=== PATIENT | male | born 1975 | race Caucasian/White ===

== ENCOUNTER 2020-07-15 19:30 | Emergency (ER) | payer OTHER, SELFPAY ==
[2020-07-15 19:30] VITALS: BP 144/88; PULSE 90; RESP 18; TEMP 36.7; O2SAT 99; BMI 36.9
--- NOTE | 2020-07-15 19:40 | CT_ITS ---
INDICATION: LLQ pain EXAMINATION: CT Abdomen And Pelvis W/ Contrast Injection TECHNIQUE: Helically acquired images were obtained of the abdomen and pelvis after IV contrast. A radiation dose optimization technique was used for this scan. IV Contrast dosage and agent: 100 cc [id number] Oral contrast: Yes. COMPARISON: None. FINDINGS: Visualized lung bases: Bibasilar atelectasis. Liver: Unremarkable Gallbladder: Surgically absent. Spleen: Unremarkable Pancreas: Unremarkable Adrenal Glands: Unremarkable Kidneys: Unremarkable GI Tract: Scattered diverticula throughout the colon without evidence of inflammation. Vasculature: Unremarkable Lymphadenopathy: None Peritoneum: No ascites. Bladder: Unremarkable Reproductive organs: Unremarkable Bones/Soft tissues: Mild scattered degenerative changes of the visualized spine. CT/Abdomen/Pelvis WITH Contrast IMPRESSION: No acute abnormalities in the abdomen or pelvis. Diverticulosis. Electronically Signed: Jadiel Chong MD at 21:54 EDT Tel , Service support ,
--- NOTE | 2020-07-15 19:41 | ED.DCSUM_ITS ---
History of Present Illness Chief Complaint: Abd Pain Informant: Patient Onset: Days - 2 days Context: Gradual Onset Current Severity: Moderate Maximum Severity: Severe Narrative: Patient presents with left lower quadrant pain that started 2 days ago. Pain has been constant since that time and progressively worsening. He denies fever or chills. He has not had much to eat the last 2 days stating he does not care if he eats or not. He states he has not had a bowel movement the last 2 days and he usually goes daily. No urinary symptoms. - Past Medical History (1) GERD (gastroesophageal reflux disease) Status: Chronic Past Medical History - Allergies and Home Meds Allergies/Adverse Reactions: Allergies No Known Allergies Allergy (Verified 07/15/20 19:32) Prior records reviewed: Yes Lives: Spouse/ Significant Other Review of Systems General: Denies: Chills, Fever Eyes: Denies: Visual changes - bilaterally ENT: Denies: Bilateral ear pain Cardiovascular: Denies: Chest pain Respiratory: Denies: Dyspnea, Cough Gastrointestinal: Reports: Abdominal pain, Vomiting - 1 episode of vomiting 2 days ago. Denies: Nausea, Diarrhea Genitourinary: Denies: Dysuria Musculoskeletal: Denies: Swelling, Extremity Pain Skin: Denies: Rash Neurological: Denies: Headache Endocrine: Denies: Polyuria, Polydipsia Hematologic: Denies: Easy bruising Physical Exam Vital Signs/Narrative: Vital Signs Temp Pulse Resp BP Pulse Ox 07/15/20 19:30 98.0 F 90 18 144/88 H 99 Inital Vital Signs reviewed: Yes General: Well nourished, Well developed Head: Normocephalic ENT: Moist mucous membranes Neck: Supple Cardiovascular: Regular rate, Regular rhythm Respiratory: No distress, CTA bilaterally Abdomen: Soft, Tender - Mild left lower quadrant tenderness. No guarding or rebound., Hypoactive bowel sounds Skin: Normal color Neurological: Alert, Oriented x3 Psychological: Normal affect Diagnostic/Tx/Re-eval Impressions Abdomen/Pelvis CT 07/15/20 19:40 IMPRESSION: No acute abnormalities in the abdomen or pelvis. Diverticulosis. Electronically Signed: Jadiel Chong MD at 21:54 EDT Tel , Service support , 07/15/20 19:40 Abdomen/Pelvis WITH Contrast [CT] Stat Laboratory Results 07/15/20 07/15/20 07/15/20 19:54 19:54 19:55 WBC 10.8 RBC 5.45 Hgb 16.9 H Hct 48.5 MCV 89.0 MCH 31.0 MCHC 34.8 RDW Std Deviation 41.0 RDW Coeff of Ming 12.6 Plt Count 308 MPV 9.4 Immature Gran % (Auto) 0.600 Neut % (Auto) 73.6 H Lymph % (Auto) 18.6 L [place] % (Auto) 6.7 Eos % (Auto) 0.1 Baso % (Auto) 0.4 Absolute Neuts (auto) 8.0 H Absolute Lymphs (auto) 2.02 Nucleated RBC % 0 Sodium 139 Potassium 3.8 Chloride 108 H Carbon Dioxide 25.0 Anion Gap 6 BUN 14 Creatinine 1.11 Estim Creat Clear Calc 110.93 Est GFR (MDRD) Af Amer 93 Est GFR (MDRD) Non-Af 77 BUN/Creatinine Ratio 12.6 Glucose 125 H Calcium 9.4 Urine Color Yellow Urine Clarity Clear Urine pH 6.0 Ur Specific [place] 1.020 Urine Protein 15 H Urine Glucose (UA) Normal Urine Ketones 15 H Urine Occult Blood 50 H Urine Nitrite Negative Urine Bilirubin Negative Urine Urobilinogen 1 H Ur Leukocyte Esterase Negative Urine RBC 0 SEEN Urine WBC 0-5 SEEN Ur Squamous Epith Cells 0 SEEN Urine Bacteria 2+ Urine Mucus 0 SEEN - Medical Decision Making Patient was treated with morphine and Zofran followed by doses of Dilaudid. At this time pain is improved but not resolved. Test results discussed with patient as well as at bedside. Blood work is largely unremarkable, only slight hemoconcentration noted. CT scan with contrast reveals no acute abnormalities. He does have evidence of diverticulosis but no evidence of diverticulitis. Patient has had problems with his back. I do question whether his pain may be radiating from his lower back around the left side. In light of this he will be treated with Flint, Flexeril, and prednisone. He is given return instructions. He is given a work note for today and tomorrow. ED Disposition - Plan for ED Patient: Disposition: Home or Assisted Living Diagnosis: Left flank pain Instructions: ED Flank Pain, Uncertain Cause Prescriptions: Prednisone [Deltasone] 60 mg PO DAILY #15 tablet Transmission Status: Received by [facility] [id number] cycloBENZAPRine HCl [Flexeril] 10 mg PO TID PRN #20 tab PRN Reason: Muscle Spasm Transmission Status: Received by [id number] Hydrocodone Bitart/Apap 5-325 [Flint 5MG-325MG] 1 tablet PO Q6H PRN PRN 3 Days #10 tab PRN Reason: Pain Transmission Status: Received by [id number]
[2020-07-15] MEDS: Ondansetron 4 MG/2 ML Vial IV (19:52)
[2020-07-15] MEDS: 0.9% Normal Saline 1,000 ML 150 ML IV (19:52)
[2020-07-15] MEDS: Morphine 4 MG/ML Syringe IV (19:53)
[2020-07-15 20:08] LABS: Mucous, Urine 0 SEEN /hpf (<or=2+); Red Blood Cells-Urine 0 SEEN /hpf (0-5); Squamous Epithelial Cells - UA 0 SEEN /hpf (0-5)
[2020-07-15 20:10] LABS: Absolute Lymphocyte Count 2.02 X10^3/uL (0.83-4.51); Basophil# 0.04 X10^3/uL; Basophil% 0.4 % (0-1); Eosinophil# 0.01 X10^3/uL; Eosinophils% 0.1 % (0-5); Hematocrit 48.5 % (40-54); Hemoglobin 16.9 g/dL (13.0-16.5); Lymphocyte # 2.02 X10^3/ul (4.0); Lymphocyte % 18.6 % (19-41); Mean Corp Hgb Conc 34.8 g/dL (32-36); Mean Platelet Vol. 9.4 fl (6.2-12.0); Monocyte# 0.73 X10^3/uL; Monocyte% 6.7 % (0-10); NRBC Flagged by Analyzer 0 % (0-5); Neutrophil # 7.98 X10^3/uL (2.7-7.7); Neutrophil % 73.6 % (47-70); Platelet Count 308 K/mm3 (150-450); RBC Distribution Width CV 12.6 % (11.6-14.6); Red Blood Count 5.45 M/mm3 (4.6-6.2); White Blood Count 10.8 K/mm3 (4.4-11.0)
[2020-07-15 20:18] LABS: Color, Urine Yellow (Yellow); Glucose, Dipstick Normal (Normal); Ketone-Dipstick 15 mg/dl (Negative); Leukocyte Esterase-Dipstick Negative /ul (Negative); Nitrite-Dipstick Negative (Negative); Occult Blood-Urine 50 /ul (Negative); Protein-Dipstick 15 mg/dl (Negative); Urine Bilirubin Dipstick Negative (Negative); Urine Clarity Clear (Clear); Urine Urobilinogen 1 mg/dl (Normal)
[2020-07-15 20:27] LABS: Anion Gap 6 (5-15); BUN 14 mg/dL (7-18); BUN/Creat Ratio 12.6 RATIO (10-20); Calcium,Total 9.4 mg/dL (8.5-10.1); Chloride 108 mmol/L (98-107); Creatinine, Serum 1.11 mg/dL (0.70-1.30); EST Glomerular Filtration Rate 77 mL/min (>60); Est Glom Filt Rate - Afr Amer 93 mL/min (>60); Estimated Creatinine Clearance 110.93 ml/min; Glucose 125 mg/dL (74-106); Potassium 3.8 mmol/L (3.5-5.1); Sodium Level 139 mmol/L (136-145)
[2020-07-15 20:30] LABS: Bacteria 2+ /hpf (None Seen); White Blood Cells 0-5 SEEN /hpf (0-5)
[2020-07-15] MEDS: HYDROmorphone 0.5 MG/0.5 ML SYRINGE IV (20:54)
[2020-07-15] MEDS: HYDROmorphone 1 MG/ML Syringe IV (21:46)
[2020-07-15 21:48] VITALS: BP 111/68; PULSE 94; RESP 17; O2SAT 97
[2020-07-15] MEDS: cycloBENZAPRine HCl 10 MG Tablet PO (22:18)
[2020-07-15] MEDS: predniSONE 20 MG Tablet 60 MG PO (22:18)
[2020-07-15 22:25] VITALS: BP 110/60; PULSE 91; RESP 18; O2SAT 98
== END 2020-07-15 22:25 | disposition home or self-care (01) ==
PROVIDERS: Emergency Provider Emergency Medicine; PCP Family Medicine
DX: R10.9 Unspecified abdominal pain (principal); K21.9 Gastro-esophageal reflux disease without esophagitis
CPT/HCPCS: 74177; 80048; 81001; 85025; 96361; 96374; 96375; 96376; 99284; Q9967; A4216; J2405

== ENCOUNTER → 2021-01-20 14:26 | Outpatient (CLI) | payer OTHER, SELFPAY ==
--- NOTE | 2021-01-20 14:29 | VDLE_ITS ---
Reason For Study: Swelling RIGHT LEFT GSV is normal. CFV is compressible, spontaneous, phasic, CFV is compressible, spontaneous, phasic, competent, and demonstrates normal competent and demonstrates normal augmentation. augmentation. FV is compressible, spontaneous, phasic, competent and demonstrates normal augmentation. POP V is compressible, spontaneous, phasic, competent and demonstrates normal augmentation. T/P Trunk is compressible. PTV is compressible. RT PerV is compressible. Acute deep vein thrombosis is noted in the right GastrocV and SoleusV. Thrombus filled varicose veins noted in the right proximal posterior calf. Procedure This is a venous duplex using B-mode, color flow and spectral Doppler. Exam performed in department. A preliminary report was called and/or faxed to [facility]. VL/Venous Duplex US, Unilateral Interpretation Summary Acute deep venous thrombosis right gastrocnemius and soleus veins. Superficial thrombophlebitis varicose veins right proximal posterior calf. Patent and compressible right great saphenous vein Normal flow patterns left common femoral vein Ordering Physician: Meliza Lopez Referring Physician: Ralph Almaraz Performed By: Pilar Ham RVT
== END ==
PROVIDERS: PCP Family Medicine; Referring Provider Family Medicine; Visit Provider Family Medicine
DX: M79.604 Pain in right leg (principal)
CPT/HCPCS: 93971

== ENCOUNTER 2021-05-07 09:38 | Outpatient (CLI) | payer OTHER, SELFPAY ==
--- NOTE | 2021-05-07 09:42 | VDLE_ITS ---
Reason For Study: F/U DVT RIGHT GSV is normal. CFV is compressible, spontaneous, phasic, competent and demonstrates normal augmentation. FV is compressible, spontaneous, phasic, competent and demonstrates normal augmentation. POP V is compressible, spontaneous, phasic, competent and demonstrates normal augmentation. RT T/P Trunk is PARTIALLY compressible in GastroV . RT Soleus V is compressible. RT Varisose V are compressible. PTV is compressible. RT PerV is compressible. Procedure Exam performed in department. A preliminary report was called and/or faxed to DR LOPEZ. VL/Venous Duplex US, Unilateral Interpretation Summary Chronic deep venous thrombosis right gastrocnemius vein. Patent and compressible right great saphenous vein and varicosities Improvement is noted from the previous examination of January 20, 2021 Ordering Physician: Meliza Lopez Referring Physician: CRISTIAN HUANG Performed By: Myra Fermin, THOR, RVT
== END 2021-05-07 23:59 | disposition short-term general hospital (02) ==
LOC: CVS 09:40
PROVIDERS: PCP Family Medicine; Referring Provider Family Medicine; Visit Provider Family Medicine
DX: I82.401 Acute embolism and thrombosis of unspecified deep veins of right lower extremity (principal)
CPT/HCPCS: 93971

== ENCOUNTER 2023-08-02 09:25 | Day surgery (SDC) | payer OTHER, SELFPAY ==
[2023-08-02] VITALS (8 sets, daily range): BP systolic 130–144; BP diastolic 82–95; PULSE 62–70; RESP 16; TEMP 36.1–36.6; O2SAT 93–98; BMI 39.5
--- NOTE | 2023-08-02 09:33 | EKG12_ITS ---
Test Reason : PREOP Blood Pressure : / mmHG Vent. Rate : 065 BPM Atrial Rate : 065 BPM P-R Int : 188 ms QRS Dur : 082 ms QT Int : 400 ms P-R-T Axes : 062 038 055 degrees QTc Int : 416 ms Normal sinus rhythm Normal ECG No previous ECGs available Confirmed by NOREEN CRUZ, MEGHANA ([id number]), editor school photograph WILLIS LI ([id number]) on 08/04/2023 10:46:49 AM Referred By: Ralph Almaraz Confirmed By:MEGHANA SORTO MD
[2023-08-02] MEDS: Lactated Ringers 1,000 ML 15 ML IV ×2 (09:45→11:39)
[2023-08-02 09:50] LABS: Hematocrit 47.1 % (40-54); Hemoglobin 16.6 g/dL (13.0-16.5); Mean Corp Hgb Conc 35.2 g/dL (32-36); Mean Corpuscular Hgb 31.3 pg (27.0-32.0); Mean Corpuscular Volume 88.9 fL (80-94); Mean Platelet Vol. 9.3 fl (6.2-12.0); Platelet Count 274 K/mm3 (150-450); RBC Distribution Width SD 42.5 fl (35.1-43.9); White Blood Count 6.1 K/mm3 (4.4-11.0)
--- NOTE | 2023-08-02 10:17 | HP.PCM_ITS ---
History and Physical Date of Admission: 08/02/23 Intake Vital Signs 07/04/2414:10 Weight: 350 lb BP 137/87 H Blood Pressure Location Rt brachial Position Sitting Respiration 17 Pulse 87 Pulse Source Monitor Pulse Oximetry (%) 95 Oxygen Delivery Method room air Intake Visit Reasons: Hernia Chief Complaint: hernia Is patient in pain?: No Allergies No Known Allergies Allergy (Verified 07/05/23 15:11) Medications glucosamine sulfate 500 mg tablet (Glucosamine) 500 mg PO DAILY 07/05/23 [History Confirmed 07/05/23] omeprazole 20 mg capsule,delayed release 20 mg PO DAILY 07/05/23 [History Confirmed 07/05/23] klumgcwp-hvjzse-huo-qzu-piu-tnpu-horse 100 mg-100 mg-100 mg-125 mg tab (Tumersaid) tab PO 07/05/23 [History Confirmed 07/05/23] PFSH Surgical History (Updated 07/05/23 @ 15:09 by Fina Prado) H/O umbilical hernia repair Hx laparoscopic cholecystectomy Family History (Updated 07/05/23 @ 15:10 by Fina Prado) Mother Cancer kidney Social History Smoking Status: Former smoker HPI HPI HPI: Patient has an upper abdominal ventral hernia that has been there for about 3 years. He has had 2 umbilical hernia repairs with use of both down at the umbilicus. The pain and bulging he is having is more in the epigastric region. Patient reports that it hurts to cough and lift heavy. ROS General General: No weight change, appetite, fatigue, colon cancer, breast cancer or weakness HEENT HEENT: No difficulty swallowing, eye injury, eye surgery, swollen glands or hoarseness Endo Endocrine: No thyroid disease, diabetes mellitus, thyroid cancer, Hair loss, heat intolerance or cold intolerance Skin Skin: No rash or changing moles Musc Musculoskeletal: Yes back problems; No arthritis, rheumatoid arthritis, gout or joint pain Cardio Cardiovascular: No murmur, pacemaker, heart disease, atrial fibrillation, high blood pressure, heart attack, heart stent, palpitations, shortness of breat with exertion or chest pain Psych Psychiatric: No depression, anxiety or hearing voices Resp Respiratory: No shortness of breath, No sleep apnea, No cough, No COPD, No asthma, No emphysema and No wheezing Gastro Gastrointestinal: Yes abdominal pain, No nausea or vomiting, No diarrhea, No constipation, No blood in stool, Yes acid reflux, Yes hemorrhoids, Yes ulcers, No gallbladder problem and No black,tarry stools [place]on Hematologic: No blood thinners, No blood disorders, No bleeding, No anemia and No blood clots Neuro Neurologic: No system reviewed and no additional complaints, except as documented, No as per HPI, No abnormal gait, No abnormal hearing, No abnormal movements, No abnormal speech, No behavioral changes, No burning sensations, No confusion, No convulsions, No disequilibrium, No dizziness, No localized weakness, No frequent falls, No headache(s), No lack of coordination, No loss of vision, No memory loss, No numbness, No other visual disturbances, No radicular pain, No restless legs, No sensory deficit, No syncope, No tingling, No tremor(s), No weakness and No other Exam Const General: cooperative Orientation: alert and oriented x3 HENMT Head: normal to inspection Neck Neck: normal visual inspection and full ROM Chest Chest palpation & inspection: normal inspection of the chest Resp Effort & Inspection: normal respiratory effort Auscultation: clear to auscultation bilaterally Cardio Rate: regular rate Rhythm: regular rhythm GI Inspection: non-distended Palpation: soft, hernia ventral and nontender Skin General: no rashes or lesions noted Neuro General: patient alert and patient oriented x3 Extrem General: full ROM Psych Appearance: grossly normal Mental Status: mental status grossly normal Assessment and Plan Assessment and Plan (1) Ventral hernia: Status: Acute Qualifiers: Obstruction and gangrene presence: without obstruction or gangrene Qualified Code(s): K43.9 - Ventral hernia without obstruction or gangrene Plan: The patient has a ventral hernia at the superior midline abdomen. It is not associated with his prior umbilical hernia repairs. It feels approximately 3 to 4 cm in diameter. I performed an ultrasound in the office and confirmed that it was a hernia and it is reducible. I will schedule him for open ventral hernia repair with mesh. I discussed the risks as well as postoperative care. I discussed the risks of bleeding, infection, injury to underlying organs, hernia recurrence, mesh placement. Patient is willing to proceed. I will schedule him for surgery. Rigo Markham MD Pager: [facility] [address] [place] [address], [address] [place] [address] Office: I have examined the patient and the H&P has been reviewed. There are no clinical changes since date of exam.
[2023-08-02] MEDS: Cefazolin 3 GM in 0.9% Normal Saline (100mL Bag) 100 ML IV (10:48)
[2023-08-02] MEDS: Bupiv/Epi 0.25% 30 ML Vial (11:05)
--- NOTE | 2023-08-02 11:41 | SUR.PHASEI ---
patient awoke in phase 1 with bilateral red eyes. pt denies pain or itchiness.
--- NOTE | 2023-08-02 11:42 | PCM.OPRPT ---
Report of Operation Date of Procedure: 08/02/23 Pre-Operative Diagnosis: Ventral hernia less than 3 cm Post-Operative Diagnosis: Same Surgery/Procedure Performed:: Ventral hernia repair with mesh less than 3 cm Type of Anesthesia: General/Regional Specimen's removed: None Estimated Blood Loss (mL): 5 Description of Procedure: Patient was brought back to the operating room and general anesthesia was induced. The abdomen was prepped and draped in usual sterile fashion. The area overlying the hernia was injected local anesthetic and then an incision was made with a scalpel. Blunt dissection was used to reach the hernia contents which were divided bluntly from their surrounding tissues. These were able to be reduced into the abdomen. The hernia defect was grasped and elevated with Ela's. The defect itself measured 1 cm. A small Ventralex ST mesh was chosen. The underlying preperitoneal fat was dissected free from the anterior fascia. The small Ventralex ST mesh was placed into the preperitoneal space and sutured to the anterior abdominal wall using 0 PDS suture. The area was irrigated and suctioned dry. The hernia defect was closed using interrupted 0 Nurolon sutures in a transverse fashion. The subcutaneous tissue was irrigated and suctioned dry and the skin was closed with interrupted 3-0 Vicryl sutures. Steri-Strips and bandages were applied. Patient was awoken and taken to PACU in stable condition. Grafts/Implants Used: Small Ventralex ST mesh Admit VTE Documentation VTE Mechan Device Prophylaxis: SCD's
--- NOTE | 2023-08-02 11:46 | DCINST_ITS ---
Discharge Instructions Procedure Hernia Diet Discharge Diet: Light diet - advance as tolerated Activity Discharge Activity: May Not Drive (for 2-3 days or while taking narcotic pain meds.) and May Shower (with the bandage in place 1-2 days after surgery.) Lifting Restrictions: 15 pounds for 2 weeks. Additional Activity Instructions:: Climbing stairs is fine, walking is encouraged. Sitting in bed may be uncomfortable. Sitting up using your lateral muscles (sitting up sideways) is usually more comfortable. Do not drive, work heavy equipment of sign legal documents for 24 hours. Pain medications may cause nausea, you should typically eat light foods as you take your pain medications. Pain medications may also cause constipation. If you have difficulty with this, discuss with your doctor. Alternate ibuprofen and Tylenol for pain, oxycodone for breakthrough pain. Dressing / Incision Call your doctor if your incision/area has: Continuous Slow Oozing, Sudden Increased Bleeding, Increased Pain/ Swelling, Increased Redness and Foul Smelling Discharge Call your doctor if you observe: Fever of 101 or Higher Suture Line Care: Avoid Pulling/Pushing and Avoid Pinching/Bending Remove Dressing in: 2 days (Remove clear bandages in 2 days, remove Steri-Strips in 7 to 10 days.) Follow Up Care Please Follow Up With: Rigo Markham MD When: Please call to schedule 2 week follow up appointment. [phone] Test Results: Test results from this visit will be discussed in further detail at your follow- up appointment, if applicable. Discharge Plan Admission Attending Provider: Rigo Markham Primary Care Provider: Ralph Almaraz Discharge Orders/Prescriptions Prescriptions: New acetaminophen 325 mg Tablet 650 mg PO Q4H PRN PRN (Reason: Pain 1-10 Or Fever) Qty: 0 0RF oxycodone 5 mg Tablet 5 - 10 mg PO Q4H PRN PRN (Reason: Pain Score 4-10) 5 Days Qty: 15 0RF Continued omeprazole 20 mg capsule,delayed release(DR/EC) 20 mg PO DAILY glucosamine sulfate [Glucosamine] 500 mg tablet 500 mg PO DAILY Rx Instructions: administer with a meal turmeric 400 mg capsule 400 mg PO DAILY naproxen sodium [Aleve] 220 mg capsule 220 mg PO BID PRN (Reason: pain) Referrals / Follow Up: Ralph Almaraz MD [Primary Care Provider] - Disposition Disposition (needs filled in before D/C Order can be placed): Home, Self Care
[2023-08-02] MEDS: Acetaminophen 325 MG Tablet 650 MG PO (12:32)
[2023-08-02] MEDS: oxyCODONE 5 MG Tablet PO (12:33)
== END 2023-08-02 13:05 | disposition home or self-care (01) ==
LOC: SDC 09:25 → AC 09:26
PROVIDERS: Anesthesiology; PCP Family Medicine; Referring Provider Family Medicine; Visit Provider Surgery
PROC: (CPT 49591; principal; 2023-08-02 10:45)
DX: K43.9 Ventral hernia without obstruction or gangrene (principal); Z87.891 Personal history of nicotine dependence; K21.9 Gastro-esophageal reflux disease without esophagitis; Z79.899 Other long term (current) drug therapy; Z87.19 Personal history of other diseases of the digestive system
CPT/HCPCS: 49591; 00832; 85027; 93005; J7120; C1781; J2405